=== PATIENT | female | born 2000 | race American Indian/Alaskan Native ===

== ENCOUNTER 2021-04-12 15:54 | Outpatient (CLI) | payer OTHER ==
[2021-04-12 18:11] VITALS: BP 102/73
[2021-04-12 19:15] LABS: Bilirubin,Urine NEG (Negative); Blood,Urine NEG (Negative); Color,Urine Red (Yellow); Mucus,Urine 1+ /HPF; Urobilinogen,Urine < 2.0 mg/dL (<2.0)
[2021-04-12] MEDS ORDERED: LACTATED RINGERS 500 ML IV ONE (19:48)
[2021-04-12] MEDS ORDERED: LIDOCAINE-MPF (1%) 10 MG/1 ML VIAL 5 ML INFILTRATI ONE (20:31)
--- NOTE | 2021-04-12 20:45 | Ultrasound Report ---
ULTRASOUND BIOPHYSICAL PROFILE ULTRASOUND OB LIMITED INDICATION: BPP/BRIDGETTE/PLACENTA ABRUPTION. well-being TECHNIQUE: Transabdominal ultrasound imaging. COMPARISON: None FINDINGS: breathing movement = 2 Gross body movement = 2 tone = 2 Qualitative amniotic fluid volume = 2 Total biophysical score = 8/8 Amniotic fluid index is 17.7 cm. Presentation is cephalic. heart rate is 139 beats per minute. Placenta: The placenta is anterior, grade 1. No evidence for abruption. IMPRESSION: biophysical profile equals 8/8. No evidence for abruption. Signer Name: Meek Hart Jr, MD Signed: 04/12/2021 8:40 PM Workstation Name: [id number]
== END 2021-04-12 20:25 | disposition home or self-care (01) ==
LOC: APU 15:54 → TRG 15:54
PROVIDERS: ATTEND Obstetrics & Gynecology
DX: O26.853 Spotting complicating pregnancy, third trimester (principal); Z3A.34 34 weeks gestation of pregnancy
CPT/HCPCS: 59025; 76815; 76819; 81001; 87086; 96372; J0696